=== PATIENT | female | born 1980 | race Caucasian/White ===

== ENCOUNTER 2023-12-08 06:43 | Day surgery (SDC) | payer OTHER ==
[~2023-12-08] VITALS: Ht 167.6 cm; Wt 81.8 kg
[~2023-12-08 06:43] MED LIST: SODIUM CHLORIDE 0.9% 1,000 ML ONE
[2023-12-08] MEDS: SODIUM CHLORIDE 0.9% 1,000 ML IV ONE (07:25)
[2023-12-08] MEDS ORDERED: FentaNYL CITRATE PF 100 MCG/2 ML VIAL ONE (07:54)
[2023-12-08] MEDS ORDERED: MIDAZOLAM HCL 2 MG/2 ML VIAL ONE (07:54)
[2023-12-08 09:57] VITALS: PULSE 103; RESP 21; O2SAT 100
[2023-12-08] MEDS: PROMETHAZINE HCL/CODEINE 6.25-10MG/5ML SOLUTION UDCUP PO ONE (10:33)
[2023-12-08] MEDS ORDERED: MethylPREDNISolone SOD SUCC 125 MG/2 ML VIAL ONE (10:44)
[2023-12-08] MEDS: MethylPREDNISolone SOD SUCC 125 MG/2 ML VIAL IVP ONE (10:46)
== END 2023-12-08 12:10 | disposition home or self-care (01) ==
LOC: SURGERY 06:43
PROVIDERS: ATTEND Internal Medicine Critical Care Medicine
DX: R05.3 Chronic cough (principal); R04.2 Hemoptysis; J98.09 Other diseases of bronchus, not elsewhere classified; J84.10 Pulmonary fibrosis, unspecified; J98.8 Other specified respiratory disorders; E78.00 Pure hypercholesterolemia, unspecified; M54.30 Sciatica, unspecified side; Z85.21 Personal history of malignant neoplasm of larynx; Z98.891 History of uterine scar from previous surgery; Z88.0 Allergy status to penicillin
CPT/HCPCS: 84703; 87206; 87101; 87220; 87070; 88108; 31623; 31624; 94640; 71045; 87015; J3010; J2250; J2919; J7030